=== PATIENT | male | born 1990 ===

== ENCOUNTER → 2019-03-22 | Outpatient (CLI) | payer OTHER ==
[2019-03-22 21:50] LABS: CALCIUM 9.2 mg/dL (8.5-10.1); GFR 87.7; POTASSIUM 4.3 mmol/L (3.5-5.1); TOTAL BILIRUBIN 0.4 mg/dL (0.2-1.0); TOTAL PROTEIN 7.9 g/dL (6.4-8.2)
[2019-03-22 21:53] LABS: ACETAMIN < 2 mcg/mL (10-30)
[2019-03-22 21:54] LABS: ETHANOL < 10 mg/dL (0-10)
== END | disposition home or self-care (01) ==
LOC: SPEC 21:11
PROVIDERS: ATTEND Family Medicine
DX: T45.6 Poisoning by, adverse effect of and underdosing of fibrinolysis-affecting drugs (principal); Y92.89 Other specified places as the place of occurrence of the external cause
CPT/HCPCS: 36415; 80053; 80329; G0480; 82003